=== PATIENT | male | born 1980 | race Caucasian/White ===

== ENCOUNTER 2016-10-28 22:10 | Emergency (ER) | payer BC ==
--- NOTE | 2016-10-28 22:50 | EDM.PDOC ---
ED HPI GENERAL MEDICAL PROBLEM - General Chief Complaint: Lower Extremity Injury/Pain Stated Complaint: LT FOOT PAIN Time Seen by Provider: 10/28/16 22:31 Source of Information: Reports: Patient, Family History Limitations: Reports: No Limitations - History of Present Illness INITIAL COMMENTS - FREE TEXT/NARRATIVE: 36 years old aria bolanos came to the ed ed a few hours after he jumped "hard " on his left foot. Since that time, he feels a painful "pop" whenever he moves his left foot. No direct external trauma. Pt denies any other acute medical issues at this time. Onset: Today Onset Date: 10/28/16 Onset Time: 16:00 Duration: Hour(s):, Intermittent Location: Reports: Lower Extremity, Left Quality: Reports: Dull, Pressure Severity: Moderate Improves with: Reports: Immobilization Worsens with: Reports: Movement Context: Reports: Exercise Associated Symptoms: Reports: No Other Symptoms Treatments [employer]: Reports: Cold Therapy - Related Data Allergies Allergy/AdvReac Type Severity Reaction Status Date / Time No Known Allergies Allergy Verified 10/28/16 22:29 Home Meds: Home Meds NK [No Known Home Meds] 10/28/16 [History] Social & Family History - Tobacco Use Smoking Status *Q: Never Smoker Second Hand Smoke Exposure: No - Caffeine Use Caffeine Use: Reports: Soda - Recreational Drug Use Recreational Drug Use: No Review of Systems - Review of Systems Review Of Systems: See Below Constitutional: Reports: No Symptoms Eyes: Reports: No Symptoms Ears: Reports: No Symptoms Nose: Reports: No Symptoms Mouth/Throat: Reports: No Symptoms Respiratory: Reports: No Symptoms Cardiovascular: Reports: No Symptoms GI/Abdominal: Reports: No Symptoms Genitourinary: Reports: No Symptoms Musculoskeletal: Reports: Foot Pain Skin: Reports: No Symptoms Neurological: Reports: No Symptoms Psychiatric: Reports: No Symptoms ED EXAM, GENERAL - Physical Exam Exam: See Below Exam Limited By: No Limitations General Appearance: Alert, WD/WN, Mild Distress Eye Exam: Bilateral Eye: Normal Inspection Ears: Normal External Exam Ear Exam: Bilateral Ear: Auricle Normal Nose: Normal Inspection Throat/Mouth: Normal Inspection Head: Atraumatic, Normocephalic Neck: Normal Inspection, Supple, Non-Tender Respiratory/Chest: No Respiratory Distress Cardiovascular: Normal Peripheral Pulses Peripheral Pulses: 2+: Posterior Tibial (L), Posterior Tibial (R) GI/Abdominal: Normal Bowel Sounds (Male) Exam: Deferred Rectal (Males) Exam: Deferred Back Exam: Normal Inspection Extremities: Normal Inspection, Normal Range of Motion, Other (tender post left foot) Neurological: Alert, Oriented, CN II-XII Intact Psychiatric: Normal Affect, Normal Mood Skin Exam: Warm, Dry, Intact, Normal Color, No Rash Lymphatic: No Adenopathy Course - Vital Signs Text/Narrative:: 36 years old w cici came to the ed ed a few hours after he jumped "hard " on his left foot. Since that time, he feels a painful "pop" whenever he moves his left foot. No direct external trauma. Pt denies any other acute medical issues at this time. PE: WNWD WM NAD Left doral matting press tender, no deformity identified. No open wound Imagin: Left foot: NAD, official report is pending. Impression: Left foot sprain. Tx: Pt refused pain meds, Walking boot was applied. Reexam: Improved Plan: D/C with instructions. Last Recorded V/S: Last Vital Signs Temp 36.8 C 10/28/16 22:31 Pulse 81 10/28/16 22:31 Resp 18 10/28/16 22:31 BP 128/86 10/28/16 22:31 Pulse Ox 18 L 10/28/16 22:31 - Orders/Labs/Meds Orders: Active Orders 24 hr Category Date Time Status Foot Comp Min 3V Lt [CR] Stat Exams 10/28/16 22:22 Taken Departure - Departure Time of Disposition: 22:44 Disposition: Home, Self-Care 01 Condition: Good Clinical Impression: Sprain of foot, left Qualifiers: Encounter type: initial encounter Qualified Code(s): S93.602A - Unspecified sprain of left foot, initial encounter - Discharge Information Referrals: Eliseo Cannon MD [Primary Care Provider] - Eliseo Mills MD [Physician] - Forms: ED Department Discharge Additional Instructions: Rest, Ice and elevation, Motrin for pain, please wear walking boot. please f/u with Dr. Mills, please come back to the ed if your symptoms get worse acutely. - My Orders Last 24 Hours: My Active Orders 10/28/16 22:22 Foot Comp Min 3V Lt [CR] Stat - Assessment/Plan Last 24 Hours: My Active Orders 10/28/16 22:22 Foot Comp Min 3V Lt [CR] Stat
--- NOTE | 2016-10-30 10:39 | CR ---
INDICATION: Pain after jumping. LEFT FOOT: Three views of the left foot revealed a mild deformity at the DIP joint of the second toe, likely developmental, but could be on the basis of previous trauma. A definite acute fracture or dislocation, or significant bone or joint abnormality, was not identified. MTDD
== END 2016-10-28 23:01 | disposition home or self-care (01) ==
LOC: FB.ED 22:10
DX: S93.602A Unspecified sprain of left foot, initial encounter (principal); X50.9XXA Other and unspecified overexertion or strenuous movements or postures, initial encounter; Y93.39 Activity, other involving climbing, rappelling and jumping off
CPT/HCPCS: 73630-LT; 99283